=== PATIENT | male | born 1980 | race African-American/Black ===

== ENCOUNTER 2023-12-23 09:58 | Emergency (ER) | payer MEDICAID ==
[~2023-12-23] VITALS: Ht 167.6 cm; Wt 77.0 kg
[2023-12-23 10:05] VITALS: O2SAT 100
[2023-12-23] MEDS: ONDANSETRON 4MG ODT PO ONE (10:58)
[2023-12-23 11:00] VITALS: BP 124/83; PULSE 84; RESP 16; TEMP 37.05852; O2SAT 100
== END 2023-12-23 10:59 | disposition home or self-care (01) ==
LOC: ER 09:58
DX: R10.9 Unspecified abdominal pain (principal); R19.7 Diarrhea, unspecified; R11.10 Vomiting, unspecified
CPT/HCPCS: 99283; Q0162